=== PATIENT | female | born 1975 | race Caucasian/White ===

== ENCOUNTER 2017-09-16 05:35 | Day surgery (SDC) | payer OTHER ==
[~2017-09-16 05:35] MED LIST: TRAMADOL HCL-AP1 TAB PO; TYLENOL325 MG PO
[2017-09-16] MEDS ORDERED: DUI500 PO (09:44)
[2017-09-16] MEDS ORDERED: TRAM1TAB98 PO (09:44)
== END 2017-09-16 12:48 | disposition home or self-care (01) ==
LOC: CIR.AMB 05:35
DX: M23.322 Other meniscus derangements, posterior horn of medial meniscus, left knee (principal); M65.862 Other synovitis and tenosynovitis, left lower leg